=== PATIENT | male | born 1960 | race Caucasian/White ===

== ENCOUNTER 2025-02-22 18:19 | Emergency (ER) | payer MEDICAID, SELFPAY ==
[2025-02-22 18:38] VITALS: BP 125/87; PULSE 85; RESP 18; TEMP 37.1; O2SAT 91
[2025-02-22 18:56] VITALS: BMI 27.3
[2025-02-22 18:59] VITALS: PULSE 83; RESP 18; O2SAT 96; BMI 34.8
--- NOTE | 2025-02-22 19:31 | PD.EDPSYCH ---
ED Psych RME/HPI General Chief Complaint: Psychiatric Symptoms Stated Complaint: PYSCH Time Seen by Provider: 02/22/25 19:17 Arrival date/time: 02/22/25 18:19 RME / HPI RME / HPI Narrative: 63-year-old male presents to the ED with a complaint of wanting help for his alcoholism. He is currently drinking approximately 20 beers a day. He is from the [facility] and is currently staying in [place] near his sister. He has a history of bipolar disorder, he states he is taking his medications as prescribed. He contacted [phone] and requested help. He thought he was going to be admitted to a alcohol rehab center but instead was told to present to the ED. He informs this provider, when asked, that he has no suicidal or homicidal ideation. Related Data Allergies Allergy/AdvReac Type Severity Reaction Status Date / Time No Known Allergies Allergy Verified 02/22/25 19:02 Review of Systems Review of Systems Systems Reviewed: All systems reviewed, normal except as documented Past Medical History Past Medical History CARDIAC: Negative Congestive Heart Failure RESPIRATORY: Negative Chronic Obstructive Pulmonary Disease (COPD) GENITOURINARY: Negative Renal Disease ENDOCRINE: Negative Diabetes Mellitus Type 1 or Diabetes Mellitus Type 2 Social History SMOKING STATUS: Current every day smoker ED Exam Narrative Physical exam: Alert and oriented, 64 year old male, tearful, no respiratory distress. Patient states he wants to go into Alcohol rehab. Lungs are clear, Regular rate and rhythm. Abdomen is soft and non tender. Moves all extremities well. General General appearance: Present alert and in no apparent distress Head Head exam: Present atraumatic and normal inspection Eye Eye exam: Present normal appearance; Absent scleral icterus or conjunctival injection ENT ENT exam: Present normal exam Neck Neck exam: Present normal inspection Chest Chest inspection: Present normal inspection Respiratory Respiratory exam: Present normal lung sounds bilaterally; Absent respiratory distress or wheezes Cardiovascular Cardiovascular exam: Present regular rate and normal rhythm Abdominal Exam Abdominal exam: Present soft; Absent distention or tenderness Rectal Exam Rectal exam: Present deferred Extremities Exam Extremities exam: Present normal inspection and full ROM; Absent tenderness Back Exam Back exam: Present normal inspection and full ROM Neurological Exam Neurological exam: Present alert, oriented X3 and normal gait; Absent motor sensory deficit Psychiatric Psychiatric exam: Present depressed, flat affect, suicidal ideation and other (Later became anxious and mildly agitated.); Absent homicidal ideation Skin Skin exam: Present warm, dry, intact and normal color Course Course Course Narrative: Labs reveal a normal white count of 7.4, normal H&H and platelets. Chemistry panel reveals normal electrolytes with normal renal function. Glucose is minimally elevated at 108. LFTs are normal at this time. Alk phos is also normal at 57. Urinalysis reveals clear colorless urine with a specific gravity of 1.004 negative protein, glucose, ketones, blood, nitrites, bilirubin, leukocyte esterase. Less than 1 RBC, less than 1 WBC, 0 squamous cells epithelials and no bacteria. Urine drug screen is negative for opiates, fentanyl, barbiturates, amphetamines, benzos, cocaine, marijuana. Ethyl alcohol is currently 176. Current vital signs blood pressure 125/87, pulse 85, respirations 18 and nonlabored, temperature 98.7, O2 sat 91% on room air. Patient was given Ativan 2 mg IM at 8:33 PM, 2 mg p.o. at 2:38 AM, as well as an additional 2 mg p.o. at 7:56 AM. Quality Measures none Orders Category Date Time Status Referral Psych Eval Stat Cons 02/23/25 03:45 Active Diet Regular Diet 02/23/25 Breakfast Active Acetaminophen Stat Lab 02/22/25 20:06 Completed Alcohol, Blood Medical Stat Lab 02/22/25 20:06 Completed CBC Stat Lab 02/22/25 20:06 Completed CMP [Comprehensive Metabolic Panel] Stat Lab 02/22/25 20:06 Completed Drug Screen,Urine Stat Lab 02/22/25 19:41 Completed Magnesium Stat Lab 02/22/25 20:06 Completed Salicylate Stat Lab 02/22/25 20:06 Completed Urinalysis Stat Lab 02/22/25 19:41 Completed LORazepam [Ativan Inj] Med 02/22/25 20:33 Discontinued 2 mg IM X1 ONE LORazepam [Ativan] Med 02/23/25 02:38 Discontinued 2 mg PO X1 ONE LORazepam [Ativan] Med 02/23/25 07:56 Discontinued 2 mg PO X1 ONE Vital Signs Vital signs: Vital Signs Temperature 98.7 F 02/22/25 18:38 Pulse Rate 85 02/22/25 18:38 Respiratory Rate 18 02/22/25 18:38 Blood Pressure 125/87 H 02/22/25 18:38 Pulse Oximetry (%) 91 L 02/22/25 18:38 Oxygen Delivery Method Room Air 02/22/25 18:38 Psych MDM Narrative MDM Narrative:: 63-year-old male presents to the ED with a complaint of wanting help for his alcoholism. He is currently drinking approximately 20 beers a day. He is from the [facility] and is currently staying in [place] near his sister. He has a history of bipolar disorder, he states he is taking his medications as prescribed. He contacted [phone] and requested help. He thought he was going to be admitted to a alcohol rehab center but instead was told to present to the ED. He informs this provider, when asked, that he has no suicidal or homicidal ideation, however later admits to Suicidal Ideation. He admits to nursing staff of a plan he's had in mind for a long time . Alert and oriented, 64 year old male, tearful, no respiratory distress. Patient states he wants to go into Alcohol rehab. Lungs are clear, Regular rate and rhythm. Abdomen is soft and non tender. Moves all extremities well. Labs reveal a normal white count of 7.4, normal H&H and platelets. Chemistry panel reveals normal electrolytes with normal renal function. Glucose is minimally elevated at 108. LFTs are normal at this time. Alk phos is also normal at 57. Urinalysis reveals clear colorless urine with a specific gravity of 1.004 negative protein, glucose, ketones, blood, nitrites, bilirubin, leukocyte esterase. Less than 1 RBC, less than 1 WBC, 0 squamous cells epithelials and no bacteria. Urine drug screen is negative for opiates, fentanyl, barbiturates, amphetamines, benzos, cocaine, marijuana. Ethyl alcohol is currently 176. Current vital signs blood pressure 125/87, pulse 85, respirations 18 and nonlabored, temperature 98.7, O2 sat 91% on room air. Patient was given Ativan 2 mg IM at 8:33 PM, 2 mg p.o. at 2:38 AM, as well as an additional 2 mg p.o. at 7:56 AM. Care of patient was transferred to Dr. Robertson at the end of this provider shift. Patient data External records reviewed:: None Clinical information provided by:: patient Social determinants that could affect healthcare access:: alcohol use Patient has the following chronic illnesses:: Alcohol abuse, Bipolar Disorder How is presenting disease/condition affected by chronic disease/condition?: exacerbated by Evaluation data The following diagnostics were reviewed and interpreted by me:: lab results Lab and/or radiology exams considered but not ordered:: N/A Interpretation Summary: Labs reveal a normal white count of 7.4, normal H&H and platelets. Chemistry panel reveals normal electrolytes with normal renal function. Glucose is minimally elevated at 108. LFTs are normal at this time. Alk phos is also normal at 57. Urinalysis reveals clear colorless urine with a specific gravity of 1.004 negative protein, glucose, ketones, blood, nitrites, bilirubin, leukocyte esterase. Less than 1 RBC, less than 1 WBC, 0 squamous cells epithelials and no bacteria. Urine drug screen is negative for opiates, fentanyl, barbiturates, amphetamines, benzos, cocaine, marijuana. Ethyl alcohol is currently 176. Medications / Prescriptions Medications or Prescriptions considered but not ordered:: N/A Medication administrations:: Medication Administration History Discontinued Medications Lorazepam (Lorazepam 2 Mg/Ml Vial) 2 mg IM X1 ONE Stop: 02/22/25 20:34 Last Admin: 02/22/25 20:52 Dose: 2 mg Documented By: CVL Lorazepam (Lorazepam 0.5 Mg Tablet) 2 mg PO X1 ONE Stop: 02/23/25 02:39 Last Admin: 02/23/25 02:43 Dose: 2 mg Documented By: CVL Lorazepam (Lorazepam 0.5 Mg Tablet) 2 mg PO X1 ONE Stop: 02/23/25 07:57 Last Admin: 02/23/25 08:06 Dose: 2 mg Documented By: NOHEMI As noted above Consultations Consultation(s) initiated? (list below): Yes Consultation #1 (Physician, Specialty, Details): Behavioral health evaluation Diagnosis Psych Differential Diagnosis: suicidal ideation, bipolar disorder, depression, drug-induced psychotic disorder, acute anxiety and other (Alcohol Withdrawal) Most likely diagnosis given after review of the tests above:: Suicidal Ideation, Bipolar Disorder, Acute Anxiety, Depression, Alcohol Withdrawal Admission Indicated Admission indicated?: indicated Explain why admission is indicated or not indicated:: Suicidal ideation, needs evaluation by behavioral health, and inpatient psychiatric evaluation. Admission Request Was there a request for admission?: No Admission Attestation Admission request attestation: Patient will need to be transferred to a psychiatric facility. Disposition Plan Disposition Plan: Transfer (Psychiatric facility) Discharge Plan Plan Patient Disposition: HOME (Self Care) Discharge Disposition comment: [facility] Prescriptions/Referrals Referrals: No Primary/Family,Physician [Primary Care Provider] - In 1 week Problem List Clinical Impression: Alcohol abuse Patient/Caregiver Discharge Instructions Education Materials: Alcoholism: Getting Help Print Language: Cook Islander Stand Alone Forms: Shanae Award Info., Patient Portal Info Letter PA/HOGSHEAD MAT INSPECTOR Supervising Physician PA/HOGSHEAD MAT INSPECTOR Supervising Physician: Dr Robertson
[2025-02-22 19:45] LABS: Collection Type, Urine Clean Catch; Squamous Epithelial Cell,Urine 0 /hpf (0-5)
[2025-02-22 20:04] LABS: Bilirubin,Urine Negative (Negative); Blood,Urine Negative (Negative); Clarity,Urine Clear (Clear/Hazy); Color,Urine Colorless (Lt Yel-Yel); Glucose, Urine Negative (Negative); Ketones,Urine Negative (Negative); Leukocyte Esterase,Urine Negative (Negative); Nitrite,Urine Negative (Negative); Protein,Urine Negative (Neg - Trace); RBC,Urine < 1 /hpf (0-3); Specific Gravity,Urine 1.004 (1.001-1.035); Urobilinogen,Urine Negative mg/dL (0.0-1.0); WBC,Urine < 1 /hpf (0-5)
[2025-02-22 20:12] LABS: Basophils # (Auto) 0.1 Thou/mm3 (0.0-0.2); Basophils % (Auto) 1 % (0-2.5); Eosinophils # (Auto) 0.3 Thou/mm3 (0.0-0.5); Eosinophils % (Auto) 5 % (0-10); Hematocrit 43.6 % (41.0-53.0); Hemoglobin 15.8 g/dL (13.5-16.0); Immature Granulocytes % (Auto) 0 % (0-0); Immature Granulocytes Auto 0.03 Thou/mm3 (0.00-0.00); Lymphocytes # (Auto) 2.4 Thou/mm3 (1.0-4.8); Lymphocytes % (Auto) 33 % (10-50); Mean Corpuscular HGB Conc 36.2 g/dl (31.0-37.0); Mean Corpuscular Hemoglobin 31.5 pg (25.0-35.0); Mean Corpuscular Volume 87 fL (80-100); Monocytes # (Auto) 0.5 Thou/mm3 (0.0-0.8); Monocytes % (Auto) 7 % (0-12); Neutrophils # (Auto) 4.1 Thou/mm3 (1.8-7.7); Neutrophils % (Auto) 55 % (37-80); Nucleated Red Blood Cell % 0 /100 WBC (0); Platelet Count 296 Thou/mm3 (140-440); Red Blood Count 5.02 Miln/mm3 (4.50-5.90); White Blood Count 7.4 Thou/mm3 (3.8-10.6)
[2025-02-22 20:21] LABS: Amphetamine/Methamp Scrn,U Negative (Negative); Barbiturate Screen,Urine Negative (Negative); Benzodiazepines Screen,Urine Negative (Negative); Benzoylecgonine Screen, Ur Negative (Negative); Fentanyl Screen,Urine Negative (Negative); Opiate Screen,Urine Negative (Negative); THC Screen,Urine Negative (Negative)
[2025-02-22 20:32] LABS: Acetaminophen < 2.0 mcg/mL (10.0-20.0); Alanine Aminotransferase 26 U/L (10-49); Albumin, Serum 4.8 gm/dL (3.4-4.8); Albumin/Globulin Ratio 1.6 (1.2-2.2); Alcohol, Blood Medical 176.1 mg/dL (0-10.0); Alkaline Phosphatase 57 U/L (46-116); Anion Gap 12 (7-16); Aspartate Amino Transferase 25 U/L (0-34); BUN/Creatinine Ratio 7 Ratio (12-20); Bilirubin,Total 0.4 mg/dL (0.3-1.2); Blood Urea Nitrogen 8 mg/dL (9-23); Calcium 10.5 mg/dL (8.3-10.6); Calcium (Corrected) 10.5 mg/dL (8.5-10.1); Carbon Dioxide 21.6 mMol/L (20.0-31.0); Chloride 104 mMol/L (98-107); Creatinine (Component) 1.1 mg/dL (0.6-1.3); Glucose 108 mg/dL (74-106); Osmolality,Calculated 274 (275-295); Sodium 138 mMol/L (136-145); Total Protein 7.8 gm/dL (5.7-8.2); eGFR > 60 See Note
[2025-02-22] MEDS: LORazepam 2 MG/ML VIAL IM (20:52)
[2025-02-23 02:34] LABS: Salicylate < 3.0 mg/dL
[2025-02-23] MEDS: LORazepam 0.5 MG TABLET 2 MG PO ×2 (02:43→08:06)
--- NOTE | 2025-02-23 04:29 | PD.EDADDENDU ---
Emergency Room Addendum Addendum Narrative: I took over the care from Agatha Sanabria NP at 11 PM on 02/22/2025. See her notes for complete H&P and ED course. My review of the blood and urine tests remarkable for serum alcohol 176. Pending evaluation by our ED patient care technician. Patient received Ativan. At 6 AM on 02/23/2025, the care of the patient was transferred to Dr. STAPLES. During my watch, the patient remained stable. Trever Robertson MD
[2025-02-23 04:56] VITALS: BP 142/90; PULSE 95; RESP 18; O2SAT 96
[2025-02-23 07:38] VITALS: BP 161/102; BP 168/115; PULSE 90; RESP 20; TEMP 36.7; O2SAT 95
--- NOTE | 2025-02-23 07:45 | PC.NURSE ---
Pt is eatting breakfast at this time.
--- NOTE | 2025-02-23 08:26 | PD.EDADDENDU ---
Emergency Room Addendum Addendum Narrative: 0600: Care assumed from Dr. Robertson, the previous shift emergency physician. Past medical, surgical, social and family history reviewed. Vitals and home medications reviewed. I will assume the care of the patient at this time, pending mental health evaluation. Please refer to the emergency department record for history and examination from initial visit.?The following addendum documentation note is intended to reflect any pending information, findings, or radiology results not included in the patient?s initial chart. 0755: RN reports patient is complaining of feeling shaky. Reportedly drinks alcohol daily and drank 20 beers yesterday. Ordered for 2mg Ativan. 0845: ASW has met with the patient and cleared with plan for patient to go to [facility]. Patient is in agreement with plan. Strict return precautions were outlined. Patient was discharged in stable condition.
--- NOTE | 2025-02-23 08:50 | PC.CC ---
Patient is a 64 year-old male who presents to the hospital for mental health evaluation due to alcoholism. Per providers note patient called the [phone] number to request help and they called 911 to be brought to the hospital. Lizy met with patient [id number] to complete assessment. ASW introduced self, role, and reason for assessment. ASW disclosed limits of confidentiality as well. Patient appeared alert and oriented to self and place. Patient made appropriate eye contact with this casualty underwriter, his behavior was calm and euthymic throughout assessment. Patient?s thought process was linear and organized. Patient reports he has been drinking excessively approximately 20 Coorslight beers daily for more than 6 months. Patient denied other substance use. Patient stated, ?I have been drinking too much and need help.? Patient reports he has had passive suicidal ideations when he drinks but no plan or intention. Patient reports he is from [facility] has been in [facility] for a month and is currently homeless. At the time of encounter patient is denying suicidal and homicidal ideations, visual and auditory hallucinations. Patient disclosed he has a diagnosis of Bipolar Disorder and was connected to outpatient mental health services in [place]. Patient is prescribed psychotropic medications Prozac 100mg 1x/day and Latuda 80mg 1x/day he reports to being compliant. Patient reports he has no prior suicide attempts but has been a on 5150-hold years ago when he had a manic episode. Patient scored high-risk on the [place] Screening. This casualty underwriter attempted to get collateral from patient?s sister Norma Dixon but patient reports he does not know her phone number. ? Patient expressed he would like this social science teacher to get him AOD help. Upon Clinical consultation with [employer], Regine Loredo the does not meet criteria to be placed on a 5150-hold. ASW to refer patient to AOD services. This casualty underwriter made contact with [facility] in [place] and spoke to Director, Peng Everett who reports they are able to accept patient. Peng provided an address [address] [place] [phone] to send patient via [employer]. ASW presented this information to patient and patient was receptive. Patient was made aware that this will be an in-patient treatment for AOD. ASW provided update of discharge plan to Dr. Rojas, senior branch manager Denise, and bedside RICO Gamino. Patient was provided with an Uber to [facility] in [place], weather appropriate clothing, a meal, [place] Community Resource Guide with half-way information and Crisis Hotline information, patient was advised that if he begins to have suicidal ideations to return to the emergency department.
[2025-02-23 09:29] VITALS: BP 158/69; PULSE 89; RESP 18; TEMP 36.6; O2SAT 96
== END 2025-02-23 09:30 | disposition home or self-care (01) ==
PROVIDERS: Physician Assistant; Emergency Provider Emergency Medicine
DX: F10.20 Alcohol dependence, uncomplicated (principal)
CPT/HCPCS: 36415; 80053; 80307; 80320; 80329; 81001; 83735; 85025; 90839; 96127; 96372; 99284; J2060; A9270; G0480

== ENCOUNTER → 2025-04-26 | Outpatient (CLI) | payer MEDICAID, SELFPAY ==
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
== END | disposition home or self-care (01) ==
DX: M19.171 Post-traumatic osteoarthritis, right ankle and foot (principal); Z87.828 Personal history of other (healed) physical injury and trauma; S99.921S Unspecified injury of right foot, sequela; W34.00XS Accidental discharge from unspecified firearms or gun, sequela
CPT/HCPCS: 73630